=== PATIENT | female | born 1980 | race Caucasian/White ===

== ENCOUNTER → 2022-07-12 | Outpatient (CLI) | payer OTHER ==
[~2022-07-12] MED LIST: FLAGYL500 MG PO; MOTRIN 800800 MG/TAB PO; NO HOME MEDICATIONS; PERCOCET 325 MG1 TA2 PO; PRENATAL1 TA1 PO; TYLENOL 325MG325 MG PO; TYLENOL 500MG500 MG PO
== END ==
LOC: MC.RAD 07:50
DX: Z12.31 Encounter for screening mammogram for malignant neoplasm of breast (principal)

== ENCOUNTER → 2023-07-13 | Outpatient (CLI) | payer OTHER | LOC: MC.RAD 07:44 | DX: N63.10 Unspecified lump in the right breast, unspecified quadrant (principal) ==

== ENCOUNTER → 2024-08-20 | Outpatient (CLI) | payer OTHER | LOC: MC.RAD 12:26 | DX: Z12.31 Encounter for screening mammogram for malignant neoplasm of breast (principal) ==